=== PATIENT | female | born 1990 | race Two or more races ===

== ENCOUNTER 2017-12-16 09:56 | Emergency (ER) | payer MEDICAID ==
[~2017-12-16] VITALS: Ht 167.6 cm; Wt 90.7 kg
[2017-12-16 10:22] VITALS: BP 126/79
== END 2017-12-16 11:00 | disposition home or self-care (01) ==
LOC: ER 10:05
DX: K04.7 Periapical abscess without sinus (principal)

== ENCOUNTER 2022-03-22 13:21 | Observation (INO) | payer MEDICAID ==
[~2022-03-22] VITALS: Ht 167.6 cm; Wt 123.0 kg
[2022-03-22] MEDS ORDERED: SODIUM CHLORIDE 0.9% 1,000 ML IV ONE (13:45)
[2022-03-22 14:18] LABS: Basophils # (auto) 0 10 ^3/uL (0-0.2); Basophils % (auto) 0.2 % (0.0-2.0); Eosinophils # (auto) 0.1 10 ^3/uL (0-0.8); Hemoglobin 11.9 g/dL (12.2-16.2); Lymphocytes # (auto) 1.2 10 ^3/uL (0.4-5.4); Monocytes # (auto) 0.5 10 ^3/uL (0-1.3); Monocytes % (auto) 5.5 % (0.0-12.0); Red Cell Distribution Width 14.2 % (11.8-14.3)
[2022-03-22 14:19] LABS: Eosinophils % (auto) 1.1 % (0.0-7.0); Hematocrit 36.6 % (36.0-46.0); Mean Corpuscular Hemoglobin 26.7 pg (28.0-32.0); Mean Corpuscular Hgb Conc. 32.6 g/dL (32.0-36.0); Mean Corpuscular Volume 81.9 fL (80.0-100.0); Neutrophils # (auto) 6.5 10 ^3/uL (1.6-8.6); Neutrophils % (auto) 78.2 % (37.0-80.0); Red Blood Cells 4.47 10^6/uL (4.0-5.20); White Blood Cell 8.3 10^3/uL (4.4-10.8)
[2022-03-22 14:25] VITALS: BP 115/71
[2022-03-22 14:30] LABS: Urine Bacteria NONE SEEN /hpf (None Seen); Urine Blood Negative /uL (Negative); Urine Specific Gravity 1.027 (1.001-1.035); Urine WBC 14 /hpf (0 - 5)
[2022-03-22 14:40] LABS: Albumin 2.8 g/dL (3.4-5.0); Calcium 8.5 mg/dL (8.5-10.1); Potassium 3.8 mmol/L (3.5-5.1)
[2022-03-22 14:43] LABS: BUN/Creatinine Ratio 13.2; Bilirubin, Total 0.3 mg/dL (0.2-1.0); Total Protein 7.3 g/dL (6.4-8.2)
[2022-03-22] MEDS ORDERED: NITR-87 PO (14:58)
[2022-03-22] MEDS ORDERED: PREN1TAB71 OR (16:25)
[2022-03-22] MEDS ORDERED: ASPI1TAB20 PO (16:25)
[2022-03-22] MEDS ORDERED: LEVO100T8 PO (16:25)
== END 2022-03-22 16:56 | disposition home or self-care (01) ==
LOC: ER 13:27 → LDRP 15:30
PROVIDERS: ADMIT Obstetrics & Gynecology; ATTEND Obstetrics & Gynecology
DX: O23.43 Unspecified infection of urinary tract in pregnancy, third trimester (principal); O26.893 Other specified pregnancy related conditions, third trimester; R73.9 Hyperglycemia, unspecified; Z3A.32 32 weeks gestation of pregnancy; Z86.32 Personal history of gestational diabetes
CPT/HCPCS: 36415; 59025; 80053; 81001; 81002; 82962; 85025; 94760; 96360; 99284; G0378